=== PATIENT | male | born 1945 | race American Indian/Alaskan Native ===

== ENCOUNTER 2021-05-24 06:11 | Day surgery (SDC) | payer MEDICARE, BC, OTHER ==
[~2021-05-24 06:11] MED LIST: Ciprofloxacin in D5W 400 MG in Premix Bag 1 BAG IV SCH; Lactated Ringers 1,000 ML IV SCH
--- NOTE | 2021-05-24 07:19 | PCM.PREANE ---
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[place], No residual effects) Other: Reports: Diabetes (NIDDM, BG this AM is 182) - Physical Assessment NPO Status Date: 05/23/21 NPO Status Time: 18:30 Vital Signs: Last Vital Signs Temp 97.2 F 05/24/21 06:38 Pulse 72 05/24/21 06:38 Resp 16 05/24/21 06:38 BP 117/65 05/24/21 06:38 Pulse Ox 95 05/24/21 06:38 Height: 5 ft 10 in Weight: 97.976 kg ASA Class: 2 Mental Status: Alert & Oriented x3 Airway Class: Mallampati = 3 Dentition: Reports: Normal Dentition Thyro-Mental Finger Breadths: 3 Mouth Opening Finger Breadths: 3 ROM/Head Extension: Full Lungs: Clear to Auscultation, Normal Respiratory Effort Cardiovascular: Regular Rate, Regular Rhythm - Lab Values: Laboratory Last Values POC Glucose 182 mg/dL (70-99) H 05/24/21 06:32 - Allergies Allergies/Adverse Reactions: Allergies Allergy/AdvReac Type Severity Reaction Status Date / Time Penicillins Allergy Cannot Verified 05/19/21 10:12 Remember - Acknowledgements Anesthesia Type Planned: General Anesthesia Pt an Appropriate Candidate for the Planned Anesthesia: Yes Alternatives and Risks of Anesthesia Discussed w Pt/Guardian: Yes Pt/Guardian Understands and Agrees with Anesthesia Plan: Yes PreAnesthesia Questionnaire HEENT History: Reports: Other (See Below) Other HEENT History: wears glasses, has upper removable dental bridge Cardiovascular History: Reports: None Other Cardiovascular History: takes Losartan to "protect kidneys" because of diabetes Respiratory History: Reports: Other (See Below) Other Respiratory History: was diagnosed with sleep apnea 15 years ago- has never had a CPAP, his fiance says he snores "sometimes" Gastrointestinal History: Reports: None Genitourinary History: Reports: None Musculoskeletal History: Reports: Gout Neurological History: Reports: Head Trauma, Other (See Below) Other Neuro History: hx of [place] for Subdural hematoma Psychiatric History: Reports: None Endocrine/Metabolic History: Reports: Diabetes, Type II, Obesity/BMI 30+ Hematologic History: Reports: None Immunologic History: Reports: None Oncologic (Cancer) History: Reports: None Dermatologic History: Reports: None - Past Surgical History Head Surgeries/Procedures: Reports: None HEENT Surgical History: Reports: Eye Surgery Other HEENT Surgeries/Procedures: left eye enucleation Cardiovascular Surgical History: Reports: None Respiratory Surgical History: Reports: None GI Surgical History: Reports: Hernia, Abdominal Other GI Surgeries/Procedures: previous Umbilical hernia repair Male Surgical History: Reports: None Endocrine Surgical History: Reports: None Neurological Surgical History: Reports: None Musculoskeletal Surgical History: Reports: None Oncologic Surgical History: Reports: None Dermatological Surgical History: Reports: None - SUBSTANCE USE Tobacco Use Status *Q: Former Tobacco User Tobacco Use Within Last Twelve Months: No Recreational Drug Use History: No - HOME MEDS Home Medications: Home Meds Losartan Potassium 25 mg PO BEDTIME 05/19/21 [History] metFORMIN HCl [Metformin HCl ER] 500 mg PO ACDINNER 05/19/21 [History] - CURRENT (IN HOUSE) MEDS Current Meds: Current Medications Ciprofloxacin/Dextrose 400 mg/ (Premix) 200 mls @ 200 mls/hr IV Q12H [facility] Last Admin: 05/24/21 07:02 Dose: 200 mls/hr Documented by: Lactated Ringer's (Ringers, Lactated) 1,000 mls @ 125 mls/hr IV ASDIRECTED [facility] Last Admin: 05/24/21 06:42 Dose: 125 mls/hr Documented by:
[2021-05-24] MEDS ORDERED: Octyl 2-Cyanoacrylate 1 Tube ONE (07:21)
[2021-05-24] MEDS ORDERED: Bupivacaine 0.5% 30 ML SDV ONE (07:21)
[2021-05-24] MEDS ORDERED: ePHEDrine 50 MG/ML SDV ONE (07:22)
[2021-05-24] MEDS ORDERED: Glycopyrrolate 0.2 MG/ML SDV ONE (07:22)
[2021-05-24] MEDS ORDERED: Sodium Chloride 0.9% 20 ML ONE (07:22)
[2021-05-24] MEDS ORDERED: Propofol 200 MG/20 ML SDV ONE ×2 (07:22→22:13)
[2021-05-24] MEDS ORDERED: fentaNYL 250 MCG/5 ML SDV ONE ×2 (07:22→22:14)
[2021-05-24] MEDS ORDERED: Ondansetron 4 MG/2 ML SDV ONE (08:46)
[2021-05-24] MEDS ORDERED: HYDROmorphone 1 MG/ML Syringe IVPUSH PRN (08:57)
[2021-05-24] MEDS ORDERED: Naloxone 0.4 MG/ML SDV IVPUSH PRN (08:57)
[2021-05-24] MEDS ORDERED: Albuterol 0.083% 2.5 MG/3 ML Neb Soln NEB PRN (08:57)
[2021-05-24] MEDS ORDERED: Metoclopramide 10 MG/2 ML SDV IVPUSH PRN (08:57)
[2021-05-24] MEDS ORDERED: Morphine 2 MG/ML SYRINGE IVPUSH PRN (08:57)
[2021-05-24] MEDS ORDERED: Ondansetron 4 MG/2 ML SDV IVPUSH PRN ×2 (08:57→09:09)
[2021-05-24] MEDS ORDERED: fentaNYL 100 MCG/2 ML SDV IVPUSH PRN (08:57)
[2021-05-24] MEDS ORDERED: Acetaminophen/HYDROcodone 325-5 MG Tab PO PRN (09:09)
--- NOTE | 2021-05-24 09:12 | PCM.OPNOTE ---
- General Post-Op/Procedure Note Date of Surgery/Procedure: 05/24/21 Operative Procedure(s): Repair recurrent incarcerated umbilical hernia Pre Op Diagnosis: Recurrent incarcerated umbilical hernia Post-Op Diagnosis: Same Anesthesia Technique: General LMA (ASA II) Primary Surgeon: Bowen Huizar Hat And Cap Opener: Dali Lane Condition: Good Free Text/Narrative:: DICTATION [id number] CPT CODE 40595
[2021-05-24] MEDS ORDERED: Lactated Ringers 1,000 ML IV SCH (09:15)
[2021-05-24] MEDS ORDERED: Morphine 4 MG/ML Syringe IVPUSH PRN (09:18)
--- NOTE | 2021-05-24 09:22 | PCM.POSTAN ---
POST ANESTHESIA ASSESSMENT - MENTAL STATUS Mental Status: Alert, Oriented - VITAL SIGNS Vital Signs: Last Vital Signs Temp 97.2 F 05/24/21 06:38 Pulse 72 05/24/21 06:38 Resp 16 05/24/21 06:38 BP 117/65 05/24/21 06:38 Pulse Ox 95 05/24/21 06:38 - RESPIRATORY Respiratory Status: Respiratory Rate WNL, Airway Patent, O2 Saturation Stable - CARDIOVASCULAR CV Status: Pulse Rate WNL, Blood Pressure Stable - GASTROINTESTINAL GI Status: No Symptoms - PAIN Pain Score: 3 - POST OP HYDRATION Hydration Status: Adequate & Stable
--- NOTE | 2021-05-24 09:29 | PCM48HPAN ---
Post Anesthesia Note - EVALUATION WITHIN 48HRS OF ANESTHETIC Vital Signs in Normal Range: Yes Patient Participated in Evaluation: Yes Respiratory Function Stable: Yes Airway Patent: Yes Cardiovascular Function Stable: Yes Hydration Status Stable: Yes Pain Control Satisfactory: Yes Nausea and Vomiting Control Satisfactory: Yes Mental Status Recovered: Yes Vital Signs: Last Vital Signs Temp 97.2 F 05/24/21 06:38 Pulse 72 05/24/21 06:38 Resp 16 05/24/21 06:38 BP 117/65 05/24/21 06:38 Pulse Ox 95 05/24/21 06:38 - COMMENTS/OBSERVATIONS Free Text/Narrative:: Pt doing well post-op, VSS. No apparent anesthetic complications. Dr. Armando Randall
[2021-05-24 11:12] VITALS: BP 110/59; PULSE 85
--- NOTE | 2021-05-24 13:10 | OR ---
SURGEON: Bowen Huizar M.D. DATE OF PROCEDURE: 05/24/2021 OPERATION PERFORMED: Repair of incarcerated recurrent umbilical hernia. PRIMARY SURGEON: Bowen Huizar M.D. PUMP MECHANIC: starch treating assistant: Dali Lane NP student. ANESTHESIA: General, LMA. ESTIMATED BLOOD LOSS: 1 mL. INTRAOPERATIVE FLUID REPLACEMENT: 700 mL of crystalloid. PREOPERATIVE DIAGNOSIS: Recurrent incarcerated umbilical hernia. POSTOPERATIVE DIAGNOSIS: Recurrent incarcerated umbilical hernia. DESCRIPTION OF PROCEDURE: The patient was taken to the operating room, placed on the operating table in the supine position. Time-out was called for appropriate identification of the patient and procedure. The surgical site had been marked prior to the patient entering the operating room. Sequential compression devices were placed. The abdomen was then prepped with DuraPrep solution. Sterile drapes were applied. The skin around the umbilicus was infiltrated with 10 mL of 0.5% plain Marcaine solution. Skin incision was made to the right of the umbilicus and extended inferiorly, curving around the lower portion of the umbilicus. Hemostasis was obtained with the use of electrocautery. Dissection was carried into the subcutaneous tissue with electrocautery. The preperitoneal fat was identified, and I was able to reduce this. The defect was approximately 4 mm in greatest dimension. Once the hernia contents had been reduced and there was no bowel present, the defect was closed with multiple interrupted 0 Ethibond sutures. Each suture was placed under direct vision and held with hemostats until the final suture had been placed. Once the sutures were tied, the patient was given a Valsalva maneuver to 30 cm. The repair was solid. The wound was then irrigated with sterile saline solution. Subcutaneous tissue was reapproximated with interrupted 3-0 Vicryl. Skin edges were reapproximated with subcuticular 4- 0 Monocryl reinforced with half-inch Steri-Strips. The wound was dressed with a sterile Tegaderm pad. Sponge, needle, and instrument counts were all correct. Following emergence from anesthesia and extubation, the patient was taken to recovery room in stable condition. MATILDE / SANTOS /[id number]
== END 2021-05-24 11:22 | disposition home or self-care (01) ==
LOC: MW.SDS 06:11
PROVIDERS: ATTEND Surgery
DX: K42.0 Umbilical hernia with obstruction, without gangrene (principal); N40.0 Benign prostatic hyperplasia without lower urinary tract symptoms; N52.9 Male erectile dysfunction, unspecified; E11.9 Type 2 diabetes mellitus without complications; Z79.84 Long term (current) use of oral hypoglycemic drugs; Z88.0 Allergy status to penicillin; Z79.899 Other long term (current) drug therapy; Z98.890 Other specified postprocedural states; Z87.891 Personal history of nicotine dependence
CPT/HCPCS: 49587; 82947; A9270; J0744; J2704; J3010; J3490; J7120; 00750; 99100; J2405